=== PATIENT | male | born 1985 | race Caucasian/White ===

== ENCOUNTER → 2016-11-03 | Outpatient (CLI) | payer SELFPAY ==
--- NOTE | 2016-11-03 15:40 | RAD ---
EXAM DESCRIPTION: Lumbar spine, flexion, extension and neutral position images. Three view lumbar spine, lateral radiograph, cone down radiograph and AP radiograph. CLINICAL HISTORY: 30 y/o ,M, CLOSED FX OF LUMBAR VERTEBRA WITHOUT SPINAL CORD INJURY COMPARISON: October 02, 2016 IMPRESSION: Seven radiographs of the lumbar spine. Flexion, extension and neutral position lateral radiographs demonstrate minimal listhesis of L1 on L2 in the extension position. Lateral, AP and coned-down radiographs of the lumbar spine are submitted for interpretation. Degenerative change noted at L5-S1 with near complete intervertebral disc height loss. This may be due to sacral is aeration of L5. There is considerable degenerative change in noted at T12-L1 with intervertebral joint space loss and early anterior osteophyte formation. No additional vertebral body height abnormality to suggest an additional vertebral body fracture. Electronically signed by: Manoj Whitmore MD 11/03/2016 15:38
== END ==
LOC: RAD 14:26
PROVIDERS: ATTEND Physical Medicine & Rehabilitation
DX: S32.001A Stable burst fracture of unspecified lumbar vertebra, initial encounter for closed fracture (principal); M12.88 Other specific arthropathies, not elsewhere classified, other specified site

== ENCOUNTER → 2016-11-27 | Outpatient (CLI) | payer BC, SELFPAY ==
--- NOTE | 2016-11-27 13:40 | RAD ---
EXAM DESCRIPTION: XR LUMBAR SPINE 2-3 VIEWS CLINICAL HISTORY: 30 y/o ,M, CLOSED FX OF LUMBAR VERTEBRAE W/OUT INJURY TO SPINAL CORD COMPARISON: November 03, 2016 IMPRESSION: Stable moderate compression fracture of L1. No retropulsion at this time. Remaining vertebral body heights and alignment are unremarkable. All findings are unchanged when compared to prior study. Flexion and extension radiographs reveal no listhesis. Electronically signed by: Manoj Whitmore MD 11/27/2016 13:39
== END ==
LOC: RAD 13:03
PROVIDERS: ATTEND Physical Medicine & Rehabilitation
DX: S32.001A Stable burst fracture of unspecified lumbar vertebra, initial encounter for closed fracture (principal)